=== PATIENT | male | born 1950 | race Caucasian/White ===

== ENCOUNTER → 2017-04-14 | Outpatient (CLI) | payer OTHER | LOC: M RAD 10:55 | DX: I83.12 Varicose veins of left lower extremity with inflammation (principal); I83.11 Varicose veins of right lower extremity with inflammation | CPT/HCPCS: 93970 ==

== ENCOUNTER 2017-07-15 06:27 | Day surgery (SDC) | payer OTHER ==
[2017-07-15] MEDS: LR 1,000 ML IV (06:30)
[2017-07-15] MEDS ORDERED: LIDOCAINE 1% MDV 20ML VIAL SQ (06:30)
[2017-07-15] MEDS ORDERED: fentaNYL 100 MCG/2 ML INJECTION (J3010) As Ordered (07:05)
[2017-07-15] MEDS ORDERED: MIDAZOLAM INJ 2 MG/2 ML VIAL (J2250) As Ordered (07:05)
[2017-07-15] MEDS ORDERED: PROPOFOL 200 MG/20 ML VIAL As Ordered ×6 (07:05→08:52)
[2017-07-15] MEDS: LIDOCAINE 1% SDV INJ 30 ML VIAL As Ordered (07:52)
[2017-07-15] MEDS: LIDOCAINE W/EPINEPHRINE 1% 20ML VIAL As Ordered (08:17)
[2017-07-15] MEDS ORDERED: MIDAZOLAM INJ 5 MG/ML VIAL (J2250) As Ordered (08:17)
[2017-07-15] MEDS ORDERED: ALBUTEROL SULFATE 2.5 MG/0.5 ML INH NEB SOLN As Ordered (09:35)
[2017-07-15] MEDS ORDERED: PERCOCET 5MG/325MG TAB PO (09:45)
[2017-07-15] MEDS ORDERED: fentaNYL 100 MCG/2 ML INJECTION (J3010) IV (09:45)
[2017-07-15] MEDS ORDERED: ONDANSETRON 4MG/2ML VIAL (J2405) IV (09:45)
[2017-07-15] MEDS ORDERED: LR 1,000 ML IV (09:45)
== END 2017-07-15 11:20 | disposition home or self-care (01) ==
LOC: M SDC 06:27
DX: I83.009 Varicose veins of unspecified lower extremity with ulcer of unspecified site (principal); L97.919 Non-pressure chronic ulcer of unspecified part of right lower leg with unspecified severity; L97.929 Non-pressure chronic ulcer of unspecified part of left lower leg with unspecified severity; E27.1 Primary adrenocortical insufficiency; B95.62 Methicillin resistant Staphylococcus aureus infection as the cause of diseases classified elsewhere; E66.9 Obesity, unspecified
CPT/HCPCS: 36475

== ENCOUNTER → 2017-07-23 | Outpatient (CLI) | payer OTHER | LOC: M RAD 09:14 | DX: I87.2 Venous insufficiency (chronic) (peripheral) (principal) | CPT/HCPCS: 93971 ==

== ENCOUNTER 2017-12-01 09:18 | Outpatient (RCR) | payer MEDICARE, OTHER | END 2017-12-26 | LOC: M PT 09:18 | DX: I87.2 Venous insufficiency (chronic) (peripheral) (principal); I83.209 Varicose veins of unspecified lower extremity with both ulcer of unspecified site and inflammation; R22.42 Localized swelling, mass and lump, left lower limb | CPT/HCPCS: 97530 ==

== ENCOUNTER 2017-12-29 09:45 | Outpatient (RCR) | payer MEDICARE, OTHER | END 2018-01-26 | LOC: M PT 09:45 | DX: I87.2 Venous insufficiency (chronic) (peripheral) (principal); I83.029 Varicose veins of left lower extremity with ulcer of unspecified site; R22.42 Localized swelling, mass and lump, left lower limb | CPT/HCPCS: 97140 ==

== ENCOUNTER 2018-06-29 13:22 | Outpatient (RCR) | payer MEDICARE, OTHER ==
[~2018-06-29 13:22] MED LIST: D3-5CAP; FERR1TAB8 PO; HYDR20TA17; MULT1TAB10 PO; POTA20TA6; SUPETAB25 PO; TORS20TA2; TUMS750C20 PO; VITA500T17 PO
== END 2018-07-26 ==
LOC: M PT 13:22
PROVIDERS: ATTEND Surgery Vascular Surgery
DX: I87.009 Postthrombotic syndrome without complications of unspecified extremity (principal)

== ENCOUNTER 2018-12-29 13:20 | Outpatient (RCR) | payer MEDICARE, OTHER | END 2019-01-26 | LOC: M PT 13:20 | PROVIDERS: ATTEND Family Medicine | DX: I87.2 Venous insufficiency (chronic) (peripheral) (principal); I83.029 Varicose veins of left lower extremity with ulcer of unspecified site; R22.42 Localized swelling, mass and lump, left lower limb ==

== ENCOUNTER → 2019-02-16 | Outpatient (REF) | payer MEDICARE, OTHER ==
[2019-02-16 13:39] LABS: APPEARANCE, URINE CLEAR (CLEAR); BACTERIA, URINE AUTO NEGATIVE (NEGATIVE); BILIRUBIN, URINE AUTO NEGATIVE (NEGATIVE); BLOOD, URINE BLOOD NEGATIVE (NEGATIVE); COLOR, URINE YELLOW (YELLOW); GLUCOSE, URINE (UA) AUTO NEGATIVE (NEGATIVE); KETONE, URINE AUTO NEGATIVE (NEGATIVE); LEUKOCYTE ESTERASE, URINE AUTO NEGATIVE (NEGATIVE); NITRITE, URINE AUTO NEGATIVE (NEGATIVE); PROTEIN, URINE AUTO NEGATIVE (NEGATIVE); RBC, URINE AUTO 3 /HPF (0-3); SQUAMOUS EPITHELIAL CELL UR AU 0 /HPF (0-6); URIC ACID CRYSTALS MODERATE; UROBILINOGEN, URINE AUTO 0.2 mg/dL (0.0-2.0); WBC, URINE AUTO 1 /HPF (0-3)
== END ==
LOC: M SMT 12:55
PROVIDERS: ATTEND Nurse Practitioner Family
DX: R35.0 Frequency of micturition (principal)
CPT/HCPCS: 51798; 81001; 87086; G0463

== ENCOUNTER → 2019-03-23 | Outpatient (CLI) | payer MEDICARE, OTHER ==
--- NOTE | 2019-03-23 12:02 | REP ---
Clinical: Urinary frequency. Technique: Real time elliott scale ultrasound examination using curved array transducer. Findings: Examination is nondiagnostic. The bladder is completely collapsed. Impression: Nondiagnostic evaluation of the bladder. Examination should be rescheduled if necessary. Electronically Signed by Robbie Gong MD 03/23/2019 11:53 A
== END ==
LOC: M RAD 09:57
PROVIDERS: ATTEND Nurse Practitioner Family
DX: R35.0 Frequency of micturition (principal)

== ENCOUNTER → 2019-05-15 | Outpatient (REF) | payer MEDICARE, OTHER ==
[2019-05-15 14:15] LABS: APPEARANCE, URINE CLEAR (CLEAR); BACTERIA, URINE AUTO NEGATIVE (NEGATIVE); BILIRUBIN, URINE AUTO NEGATIVE (NEGATIVE); BLOOD, URINE BLOOD 1+ (NEGATIVE); COLOR, URINE YELLOW (YELLOW); GLUCOSE, URINE (UA) AUTO NEGATIVE (NEGATIVE); KETONE, URINE AUTO NEGATIVE (NEGATIVE); LEUKOCYTE ESTERASE, URINE AUTO NEGATIVE (NEGATIVE); NITRITE, URINE AUTO NEGATIVE (NEGATIVE); PROTEIN, URINE AUTO NEGATIVE (NEGATIVE); RBC, URINE AUTO 7 /HPF (0-3); SPECIFIC GRAVITY URINE AUTO 1.008 (1.002-1.035); SQUAMOUS EPITHELIAL CELL UR AU 0 /HPF (0-6); UROBILINOGEN, URINE AUTO 0.2 mg/dL (0.0-2.0); WBC, URINE AUTO 2 /HPF (0-3)
== END ==
LOC: M SMT 13:12
PROVIDERS: ATTEND Nurse Practitioner Family
DX: R35.0 Frequency of micturition (principal)
CPT/HCPCS: 81001; 87086; G0463

== ENCOUNTER → 2019-05-17 | Outpatient (REF) | payer MEDICARE, OTHER ==
[2019-05-17 18:49] LABS: APPEARANCE, URINE CLOUDY (CLEAR); BACTERIA, URINE AUTO NEGATIVE (NEGATIVE); BILIRUBIN, URINE AUTO NEGATIVE (NEGATIVE); BLOOD, URINE BLOOD NEGATIVE (NEGATIVE); CALCIUM OXALATE CRYSTALS LARGE; COLOR, URINE AMBER (YELLOW); GLUCOSE, URINE (UA) AUTO NEGATIVE (NEGATIVE); KETONE, URINE AUTO NEGATIVE (NEGATIVE); LEUKOCYTE ESTERASE, URINE AUTO NEGATIVE (NEGATIVE); NITRITE, URINE AUTO NEGATIVE (NEGATIVE); PROTEIN, URINE AUTO NEGATIVE (NEGATIVE); RBC, URINE AUTO 3 /HPF (0-3); SPECIFIC GRAVITY URINE AUTO 1.014 (1.002-1.035); SQUAMOUS EPITHELIAL CELL UR AU 0 /HPF (0-6); WBC, URINE AUTO 1 /HPF (0-3)
== END ==
LOC: M SMT 17:01
PROVIDERS: ATTEND Nurse Practitioner Family
DX: R31.29 Other microscopic hematuria (principal)

== ENCOUNTER 2019-06-07 15:33 | Outpatient (RCR) | payer MEDICARE, OTHER ==
[~2019-06-07 15:33] MED LIST changes: -POTA20TA6; +POTA20TA6 PO
[2019-06-12] MEDS ORDERED: VITA50005 PO (08:47)
[2019-06-12] MEDS ORDERED: SUPETAB44 PO (09:00)
[2019-06-12] MEDS ORDERED: NO ITAB PO (09:00)
== END 2019-06-27 ==
LOC: M PT 15:33
PROVIDERS: ATTEND Family Medicine
DX: Z51.89 Encounter for other specified aftercare (principal); I89.0 Lymphedema, not elsewhere classified

== ENCOUNTER → 2019-07-24 | Outpatient (CLI) | payer MEDICARE, OTHER ==
[~2019-07-24] MED LIST changes: +NO ITAB PO; +SUPETAB44 PO; +VITA50005 PO
== END ==
LOC: M LABSMTC 11:16
PROVIDERS: ATTEND Anesthesiology
DX: Z01.818 Encounter for other preprocedural examination (principal); Z11.59 Encounter for screening for other viral diseases

== ENCOUNTER 2019-07-26 06:30 | Day surgery (SDC) | payer MEDICARE, OTHER ==
[~2019-07-26] VITALS: Ht 182.9 cm; Wt 216.0 kg
[2019-07-26] MEDS ORDERED: LR 1,000 ML IV ONE (07:00)
[2019-07-26] MEDS ORDERED: ceFAZolin SOD 2 GM in IV 1 EA IV ONE (07:15)
[2019-07-26] MEDS ORDERED: ceFAZolin SOD 1 GM in D5W MINI-BAG PLUS 50 ML IV ONE (07:15)
--- NOTE | 2019-07-26 09:27 | ECGEPIP ---
[facility] Test Date: 2019-07-26 Pat Name: BRODIE REED Department: Room: - Gender: Male Diabetes Manager: RF : [id number] Requested By: Glenn Patterson Order Number: [id number] Reading MD: Ambrosio Moreno Measurements Intervals [place] Rate: 83 P: 83 OR: 305 QRS: -30 QRSD: 125 T: 43 QT: 401 QTc: 472 Interpretive Statements Normal sinus rhythm with first-degree AV block Left axis deviation Incomplete right bundle branch block Nonspecific T-wave abnormalities Left ventricular hypertrophy is suggested Little change since prior tracing of 07/08/2017 Electronically Signed on 07-26-2019 9:27:28 EDT by Ambrosio Moreno
[2019-07-26] MEDS ORDERED: LIDOCAINE 2% 5ML JELLY UROJET As Ordered ONE (11:05)
[2019-07-26 12:15] VITALS: BP 188/96
--- NOTE | 2019-07-27 14:29 | RO ---
DATE OF PROCEDURE: 07/26/2019 PREPROCEDURE DIAGNOSIS: Microscopic hematuria, urinary frequency. POSTPROCEDURE DIAGNOSIS: Microscopic hematuria, urinary frequency. PROCEDURE: Cystoscopy. SURGEON: Dr. Sarthak Pollack RETAIL BUSINESS ANALYST: None. ANESTHESIA: Transurethral lidocaine gel. OPERATIVE INDICATIONS: This is a 68-year-old male who has had bothersome urinary frequency. He was also found to have microscopic hematuria. He was brought to the operating room today for cystoscopy. DESCRIPTION OF PROCEDURE: The patient was brought to the operating room and transurethral lidocaine gel was administered after he was prepped and draped. Once this was done, a flexible cystoscope was inserted into the urethral meatus and advanced to the bladder using normal saline irrigation. The bladder was thoroughly examined. There were no bladder tumors or other mucosal lesions seen. There were no bladder stones. The bladder was not trabeculated. Bilateral ureteral orifices were orthotopic and effluxed clear urine. The flexible cystoscope was retroflected to examine the base of the bladder and there was mild prostate ingrowth into the bladder. 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 The remainder of the urethra was unremarkable. This marked the conclusion of the procedure. The patient was then taken back to the recovery room in stable condition. Estimated blood loss: 5 mL. Complications: None. Specimen: None. Plan: The patient notes that his symptoms did improve after his diuretic was stopped. He was on Myrbetriq previously while he was still on the diuretic and did not get good results while on Myrbetriq. Now that he is off of the diuretic I am going to put him back on Myrbetriq to see if his urinary frequency improves. Will have him followup in the clinic in 6 weeks. No additional work up is required for microscopic hematuria as his workup was negative. MTDD
== END 2019-07-26 12:25 | disposition home or self-care (01) ==
LOC: M SDC 06:30
PROVIDERS: ATTEND Urology
DX: R35.0 Frequency of micturition (principal); R31.29 Other microscopic hematuria; N40.0 Benign prostatic hyperplasia without lower urinary tract symptoms; E27.1 Primary adrenocortical insufficiency; J98.9 Respiratory disorder, unspecified; Z88.6 Allergy status to analgesic agent; Z88.3 Allergy status to other anti-infective agents; Z79.899 Other long term (current) drug therapy
CPT/HCPCS: 52000; 93005; J0690

== ENCOUNTER → 2023-04-23 | Outpatient (REF) | payer MEDICARE, OTHER ==
[~2023-04-23] MED LIST changes: +ERGO500029 PO; -HYDR20TA17; +HYDR20TA2; +POTA-151 PO; -POTA20TA6 PO; -VITA50005 PO
== END ==
LOC: M LABSMT 09:40
PROVIDERS: ATTEND Specialist
DX: Z87.438 Personal history of other diseases of male genital organs (principal)

== ENCOUNTER → 2024-08-02 | Outpatient (REF) | payer MEDICARE, OTHER ==
[2024-08-02 13:51] LABS: APPEARANCE, URINE HAZY (CLEAR); BACTERIA, URINE AUTO NEGATIVE (NEGATIVE); BILIRUBIN, URINE AUTO NEGATIVE (NEGATIVE); BLOOD, URINE BLOOD NEGATIVE (NEGATIVE); CALCIUM OXALATE CRYSTALS SMALL; COLOR, URINE YELLOW (YELLOW); GLUCOSE, URINE (UA) AUTO NEGATIVE (NEGATIVE); KETONE, URINE AUTO NEGATIVE (NEGATIVE); LEUKOCYTE ESTERASE, URINE AUTO 2+ (NEGATIVE); NITRITE, URINE AUTO NEGATIVE (NEGATIVE); PROTEIN, URINE AUTO NEGATIVE (NEGATIVE); RBC, URINE AUTO 1 /HPF (0-3); SPECIFIC GRAVITY URINE AUTO 1.008 (1.002-1.035); SQUAMOUS EPITHELIAL CELL UR AU 2 /HPF (0-6); UROBILINOGEN, URINE AUTO 0.2 mg/dL (0.0-2.0); WBC, URINE AUTO 4 /HPF (0-3)
== END ==
LOC: M SMT 13:00
PROVIDERS: ATTEND Physician Assistant
DX: R31.21 Asymptomatic microscopic hematuria (principal)

== ENCOUNTER → 2024-11-16 | Outpatient (REF) | payer MEDICARE, OTHER ==
[2024-11-16 14:10] LABS: APPEARANCE, URINE HAZY (CLEAR); BACTERIA, URINE AUTO NEGATIVE (NEGATIVE); BILIRUBIN, URINE AUTO NEGATIVE (NEGATIVE); BLOOD, URINE BLOOD 1+ (NEGATIVE); CALCIUM OXALATE CRYSTALS LARGE; GLUCOSE, URINE (UA) AUTO NEGATIVE (NEGATIVE); KETONE, URINE AUTO NEGATIVE (NEGATIVE); LEUKOCYTE ESTERASE, URINE AUTO NEGATIVE (NEGATIVE); MUCUS, URINE SMALL (NEGATIVE); NITRITE, URINE AUTO NEGATIVE (NEGATIVE); PROTEIN, URINE AUTO NEGATIVE (NEGATIVE); RBC, URINE AUTO 1 /HPF (0-3); SPECIFIC GRAVITY URINE AUTO 1.012 (1.002-1.035); SQUAMOUS EPITHELIAL CELL UR AU 0 /HPF (0-6); UROBILINOGEN, URINE AUTO 2.0 mg/dL (0.0-2.0); WBC, URINE AUTO 2 /HPF (0-3)
== END ==
LOC: M SFHCWAGY 13:24
PROVIDERS: ATTEND Physician Assistant
DX: R35.0 Frequency of micturition (principal)

== ENCOUNTER → 2024-12-18 | Outpatient (REF) | payer MEDICARE, OTHER ==
[~2024-12-18] MED LIST changes: -VITA500T17 PO; +VITA500T8 PO
[2024-12-18 14:49] LABS: APPEARANCE, URINE CLEAR (CLEAR); BACTERIA, URINE AUTO NEGATIVE (NEGATIVE); BILIRUBIN, URINE AUTO NEGATIVE (NEGATIVE); BLOOD, URINE BLOOD 1+ (NEGATIVE); GLUCOSE, URINE (UA) AUTO NEGATIVE (NEGATIVE); KETONE, URINE AUTO NEGATIVE (NEGATIVE); LEUKOCYTE ESTERASE, URINE AUTO NEGATIVE (NEGATIVE); NITRITE, URINE AUTO NEGATIVE (NEGATIVE); PROTEIN, URINE AUTO NEGATIVE (NEGATIVE); RBC, URINE AUTO 0 /HPF (0-3); SPECIFIC GRAVITY URINE AUTO 1.004 (1.002-1.035); SQUAMOUS EPITHELIAL CELL UR AU 1 /HPF (0-6); UROBILINOGEN, URINE AUTO 0.2 mg/dL (0.0-2.0); WBC, URINE AUTO 0 /HPF (0-3)
== END ==
LOC: M SMT 12:50
PROVIDERS: ATTEND Physician Assistant
DX: R31.21 Asymptomatic microscopic hematuria (principal)